=== PATIENT | male | born 1965 | race Caucasian/White ===

== ENCOUNTER 2021-05-11 17:24 | Emergency (ER) | payer BC ==
[2021-05-11 18:01] LABS: Absolute Lymphocytes (CBC) 0.5 K/uL (0.7-4.9); Basophils % 0.3 % (0-1.3); Hematocrit 44.7 % (39.6-49.0); Lymphocytes % 3.3 % (15.3-44.8); RBC Red Blood Cell Count 4.59 M/uL (4.33-5.43)
[2021-05-11 18:11] LABS: BUN Blood Urea Nitrogen 9 mg/dL (7-18); Bicarbonate 25 mmol/L (21-32); Glucose Level 128 mg/dL (74-106); Potassium 4.3 mmol/L (3.5-5.1); Sodium Level 138 mmol/L (136-145)
--- NOTE | 2021-05-11 18:16 | RAD REPORT ---
EXAM DESCRIPTION: CT - Chest Abdomen Pelvis W Cont - 05/11/2021 5:56 pm CLINICAL HISTORY: Chest and abdomen pain. fall > 10 ft COMPARISON: No comparisons TECHNIQUE: Approximately 100 mL nonionic IV contrast was administered to the patient. All CT scans are performed using dose optimization technique as appropriate and may include automated exposure control or mA/KV adjustment according to patient size. FINDINGS: Nondisplaced fracture is seen involving the posterior right third, fourth, fifth, sixth, s eventh ribs.The left lateral eleventh rib is fractured.No pleural or pericardial effusion.No pneumoth orax.No intrathoracic adenopathy. The liver, spleen, pancreas, adrenal glands and kidneys are within normal limits. No bowel obstruction, free air, free fluid or abscess. Normal appendix. Mild sigmoid diverticulosis w ithout diverticulitis. No pathologic lymphadenopathy in the abdomen or pelvis. Spinal column is maintained. No compression seen. IMPRESSION: Bilateral rib fractures are noted, greater the right as detailed.No pneumothorax or hemo thorax.
[2021-05-11] MEDS ORDERED: MORPHINE 4 MG/ML SYR ONE (18:17)
[2021-05-11] MEDS ORDERED: ONDANSETRON 4 MG/2 ML VIAL ONE (18:17)
[2021-05-11] MEDS ORDERED: HYDROMORPHONE HCL 1 MG/ML INJ ONE ×2 (19:34→19:46)
--- NOTE | 2021-05-11 19:46 | EDPHYS ---
Physician Documentation [facility] Name: Juan Manuel Lechuga Age: 55 yrs Sex: Male : 1965 Arrival Date: 05/11/2021 Time: 17:32 Bed 16 Private MD: ED Physician Josafat Cummings HPI: 05/11 17:34 This 55 yrs old Male presents to ER via Unassigned with complaints of Fall jr8 Injury. 17:34 Onset: The symptoms/episode began/occurred acutely, today. Severity of symptoms: At jr8 their worst the symptoms were moderate, in the emergency department the symptoms are unchanged. The patient has not experienced similar symptoms in the past. The patient has not recently seen a physician. This is a 55-year-old gentleman that presented to the emergency room after sustaining fall from the top of a 10 foot ladder. Stated that he was washing windows and fell backwards landed on his right side. Denies hitting head or neck. Denies loss of consciousness. Pain isolated to the right clavicle region into the right chest wall. Denies any shortness of breath at this time. Denies any other complaints at this time.. Historical: - Allergies: 17:43 No Known Allergies; iw - Home Meds: 17:43 None [Active]; iw - PMHx: 17:43 None; iw - Immunization history:: Adult Immunizations. - Social history:: Smoking status: Patient denies any tobacco usage or history of. ROS: 17:34 Constitutional: Negative for fever, chills, and weight loss, Eyes: Negative for injury, jr8 pain, redness, and discharge, ENT: Negative for injury, pain, and discharge, Neck: Negative for injury, pain, and swelling, Respiratory: Negative for shortness of breath, cough, wheezing, and pleuritic chest pain, Abdomen/GI: Negative for abdominal pain, nausea, vomiting, diarrhea, and constipation, Back: Negative for injury and pain, Skin: Negative for injury, rash, and discoloration, Neuro: Negative for headache, weakness, numbness, tingling, and seizure. 17:34 Cardiovascular: Positive for chest pain, with movement. 17:34 MS/extremity: Positive for pain, tenderness, of the Right shoulder. Exam: 17:34 Head/Face: Normocephalic, atraumatic. Eyes: Pupils equal round and reactive to light, jr8 extra-ocular motions intact. Lids and lashes normal. Conjunctiva and sclera are non-icteric and not injected. Cornea within normal limits. Periorbital areas with no swelling, redness, or edema. ENT: Nares patent. No nasal discharge, no septal abnormalities noted. Tympanic membranes are normal and external auditory canals are clear. Oropharynx with no redness, swelling, or masses, exudates, or evidence of obstruction, uvula midline. Mucous membranes moist. Neck: Trachea midline, no thyromegaly or masses palpated, and no cervical lymphadenopathy. Supple, full range of motion without nuchal rigidity, or vertebral point tenderness. No Meningismus. Cardiovascular: Regular rate and rhythm with a normal S1 and S2. No gallops, murmurs, or rubs. Normal PMI, no JVD. No pulse deficits. Respiratory: Lungs have equal breath sounds bilaterally, clear to auscultation and percussion. No rales, rhonchi or wheezes noted. No increased work of breathing, no retractions or nasal flaring. Abdomen/GI: Soft, non-tender, with normal bowel sounds. No distension or tympany. No guarding or rebound. No evidence of tenderness throughout. Back: No spinal tenderness. No costovertebral tenderness. Full range of motion. Skin: Warm, dry with normal turgor. Normal color with no rashes, no lesions, and no evidence of cellulitis. MS/ Extremity: Pulses equal, no cyanosis. Neurovascular intact. Full, normal range of motion. Neuro: Awake and alert, GCS 15, oriented to person, place, time, and situation. Cranial nerves II-XII grossly intact. Motor strength 5/5 in all extremities. Sensory grossly intact. 17:34 Constitutional: The patient appears alert, awake, in obvious pain. 17:34 Chest/axilla: Inspection: deformity, Localized swelling with tenderness noted to the AC joint region of the right shoulder., Palpation: crepitus, is not appreciated, tenderness, that is moderate, of the right lateral anterior chest, No palpable subcutaneous emphysema noted. Vital Signs: 17:48 BP 116 / 88; Pulse 72; es2 18:15 BP 118 / 81; Pulse 75; Resp 18; Temp 98.8; Pulse Ox 99% on R/A; es2 [place] Coma Score: 17:48 Eye Response: spontaneous(4). Verbal Response: oriented(5). Motor Response: obeys es2 commands(6). Total: 15. Trauma Score (Adult): 17:48 Eye Response: spontaneous(1); Verbal Response: oriented(1); Motor Response: obeys es2 commands(2); Systolic BP: > 89 mm Hg(4); Respiratory Rate: 10 to 29 per min(4); [place] Score: 15; Trauma Score: 12 MDM: 17:33 Patient medically screened. jr8 18:30 Data reviewed: vital signs, nurses notes, lab test result(s), radiologic studies, CT jr8 scan. Data interpreted: Pulse oximetry: on room air is 99 %. Interpretation: normal. Counseling: I had a detailed discussion with the patient and/or guardian regarding: the historical points, exam findings, and any diagnostic results supporting the discharge/admit diagnosis, lab results, radiology results, the need for outpatient follow up, a family practitioner, to return to the emergency department if symptoms worsen or persist or if there are any questions or concerns that arise at home. ED course: Patient's pain has improved. Patient remains hemodynamically stable. Patient does have bilateral rib fractures but no pneumothorax or hemothorax. No other acute findings on his CT scan. Labs stable.. 19:45 ED course: Patient overall feeling better. Will discharge home on pain medicine.. 8 05/11 17:34 Order name: Basic Metabolic Panel; Complete Time: 18:23 8 05/11 17:34 Order name: CBC with Diff 8 05/11 17:34 Order name: CT Chest, Abdomen, Pelvis - W/Contrast; Complete Time: 18:23 8 05/11 17:34 Order name: Labs collected and sent; Complete Time: 17:47 jr8 Administered Medications: 18:11 Drug: fentaNYL (PF) 75 mcg {Note: Rass 0.} Route: IVP; Site: left antecubital; es2 18:11 Follow up: Response: No adverse reaction es2 18:11 Drug: Zofran (Ondansetron) 4 mg Route: IVP; Site: left antecubital; es2 18:11 Follow up: Response: No adverse reaction es2 19:23 Drug: Dilaudid (HYDROmorphone) 1 mg Route: IVP; Site: left antecubital; mr2 Disposition: 23:48 Co-signature as Attending Physician, Josafat Cummings MD I agree with the assessment and kdr plan of care. Disposition Summary: 05/11/21 19:46 Discharge Ordered Location: Home jr8 Problem: new jr8 Symptoms: have improved jr8 Condition: Stable jr8 Diagnosis - Multiple fractures of ribs, right side jr8 - Multiple fractures of ribs, left side jr8 Followup: jr8 - With: Private Physician - When: 2 - 3 days - Reason: Recheck today's complaints, Continuance of care, Re-evaluation by your physician Discharge Instructions: - Discharge Summary Sheet jr8 - Rib Fracture jr8 Forms: - Medication Reconciliation Form jr8 - Thank You Letter jr8 - Antibiotic Education jr8 - Prescription Opioid Use jr8 Prescriptions: - Ibuprofen 800 mg Oral Tablet - take 1 tablet by ORAL route every 12 hours As needed take with food; 20 tablet; jr8 Refills: 0, Product Selection Permitted - Tylenol-Codeine #3 300 mg-30 mg Oral - take 2 tablet by ORAL route every 8 hours As needed; 20 tablet; Refills: 0, jr8 Product Selection Permitted Signatures: Dispatcher [employer] EDJosafat Sweet MD MD kdr Dee Hess RN RN Iker Anderson PA PA jr8 Jonathon Deshpande RN RN mr2 Teresa Lechuga RN RN es2
--- NOTE | 2021-05-11 19:46 | ER ---
Nurse's Notes [facility] Name: Juan Manuel Lechuga Age: 55 yrs Sex: Male : 1965 Arrival Date: 05/11/2021 Time: 17:32 Bed 16 Private MD: Diagnosis: Multiple fractures of ribs, right side;Multiple fractures of ribs, left side Presentation: 05/11 17:30 Chief complaint: Patient states: pt fell from top of 10 foot ladder, was washing iw windows, did not hit head, fell on right side, pain to ribs and shoulder. 17:30 Care prior to arrival: None. Mechanism of Injury: Fall from ladder. Trauma event iw details: Injury occurred in the [facility], Injury occurred: at home. Injury occurred: May 11, 2021. 17:30 Method Of Arrival: Wheelchair iw 17:41 Acuity: NAYELY 2 iw 17:43 Coronavirus screen: At this time, the client does not indicate any symptoms associated iw with coronavirus-19. Ebola Screen: Patient negative for fever greater than or equal to 101.5 degrees Fahrenheit, and additional compatible Ebola Virus Disease symptoms Patient denies exposure to infectious person. Patient denies travel to an Ebola-affected area in the 21 days before illness onset. No symptoms or risks identified at this time. Initial Sepsis Screen: Does the patient meet any 2 criteria? No. Patient's initial sepsis screen is negative. Does the patient have a suspected source of infection? No. Patient's initial sepsis screen is negative. Risk Assessment: Do you want to hurt yourself or someone else? Patient reports no desire to harm self or others. Onset of symptoms was May 11, 2021. Triage Assessment: 17:48 General: Appears distressed, slender, Behavior is cooperative, appropriate for age. es2 Trauma Activation: Alert Physician: ED Physician; Name: ; Notified At: ; Arrived At: Physician: General Surgeon; Name: ; Notified At: ; Arrived At: Physician: Radiology; Name: ; Notified At: ; Arrived At: Physician: Respiratory; Name: ; Notified At: ; Arrived At: Physician: Lab; Name: ; Notified At: ; Arrived At: Historical: - Allergies: 17:43 No Known Allergies; iw - Home Meds: 17:43 None [Active]; iw - PMHx: 17:43 None; iw - Immunization history:: Adult Immunizations. - Social history:: Smoking status: Patient denies any tobacco usage or history of. Screenin:48 Abuse screen: Denies threats or abuse. Denies injuries from another. Nutritional es2 screening: No deficits noted. Tuberculosis screening: No symptoms or risk factors identified. Fall Risk Fall in past 12 months (25 points). IV access (20 points). Mental Status- Oriented to own ability (0 pts). Primary Survey: 17:42 NO uncontrolled hemorrhage observed. A: The patient is alert. Airway: patent. iw Breathing/Chest: Respiratory pattern: regular, Respiratory effort: spontaneous, unlabored. Circulation: Pulses: palpable . Disability Alert. Exposure/Environment: All clothing and personal items were removed. Forensic evidence collection is not deemed to be indicated at this time. Items placed in patient belonging bag. 18:18 Reassessment Breathing/Chest Respiratory effort Spontaneous. es2 Assessment: 18:17 Pain: Complains of pain in R shoulder and Ribs Pain currently is 8 out of 10 on a pain es2 scale. Neuro: Level of Consciousness is awake, alert, obeys commands, Oriented to person, place, time, situation, Appropriate for age Speech is normal. Cardiovascular: Capillary refill < 3 seconds Patient's skin is warm and dry. Respiratory: Airway is patent Respiratory effort is even, Respiratory pattern is regular. Respiratory: Reports rib pain. GI: No signs and/or symptoms were reported involving the gastrointestinal system. : No signs and/or symptoms were reported regarding the genitourinary system. EENT: No signs and/or symptoms were reported regarding the EENT system. Derm: No signs and/or symptoms reported regarding the dermatologic system. Vital Signs: 17:48 BP 116 / 88; Pulse 72; es2 18:15 BP 118 / 81; Pulse 75; Resp 18; Temp 98.8; Pulse Ox 99% on R/A; es2 [place] Coma Score: 17:48 Eye Response: spontaneous(4). Verbal Response: oriented(5). Motor Response: obeys es2 commands(6). Total: 15. Trauma Score (Adult): 17:48 Eye Response: spontaneous(1); Verbal Response: oriented(1); Motor Response: obeys es2 commands(2); Systolic BP: > 89 mm Hg(4); Respiratory Rate: 10 to 29 per min(4); [place] Score: 15; Trauma Score: 12 ED Course: 17:32 Patient arrived in ED. ds1 17:33 Iker Clark PA is PHCP. jr8 17:33 Josafat Cummings MD is Attending Physician. jr8 17:41 Triage completed. iw 17:42 Patient has correct armband on for positive identification. iw 17:43 Patient maintains SpO2 saturation greater than 95% on room air. iw 17:47 Teresa Lechuga, RN is Primary Nurse. es2 17:47 Basic Metabolic Panel Sent. es2 17:47 CBC with Diff Sent. es2 17:47 Inserted saline lock: 20 gauge in left antecubital area, using aseptic technique. Blood es2 collected. 17:49 Arm band placed on. es2 17:56 CT Chest, Abdomen, Pelvis - W/Contrast In Process Unspecified. EDMS 18:18 Thermoregulation: warm blanket given to patient. es2 18:18 No provider procedures requiring assistance completed. es2 Administered Medications: 18:11 Drug: fentaNYL (PF) 75 mcg {Note: Rass 0.} Route: IVP; Site: left antecubital; es2 18:11 Follow up: Response: No adverse reaction es2 18:11 Drug: Zofran (Ondansetron) 4 mg Route: IVP; Site: left antecubital; es2 18:11 Follow up: Response: No adverse reaction es2 19:23 Drug: Dilaudid (HYDROmorphone) 1 mg Route: IVP; Site: left antecubital; mr2 Outcome: 19:46 Discharge ordered by . jr8 20:03 Patient left the ED. sj1 Signatures: Dispatcher [employer] EDNC Paula Moreno ds1 Dee Hess RN RN iw Iker Clark PA PA jr8 Jonathon Deshpande RN RN mr2 Aliza David RN RN sj1 Teresa Lechuga RN RN es2 Corrections: (The following items were deleted from the chart) 17:42 17:20 Chief complaint: Patient states: pt fell from top of 10 foot ladder, was washing iw windows, did not hit head, fell on right side, pain to ribs and shoulder iw
[2021-05-11 20:17] VITALS: BP 118/81; TEMP 98.8; O2SAT 99
[2021-05-11 20:48] LABS: Blood Morphology Comment NOT SEEN (NOT SEEN); Platelet Estimate ADEQ; White Blood Cell Scan OK (OK)
== END 2021-05-11 20:03 | disposition home or self-care (01) ==
LOC: ER 17:24
DX: S22.43XA Multiple fractures of ribs, bilateral, initial encounter for closed fracture (principal); W13.2XXA Fall from, out of or through roof, initial encounter; Y93.89 Activity, other specified
CPT/HCPCS: 85025; 80048; 36415; 71260; 74177; Q9967; J1170; J2405; 82565